=== PATIENT | male | born 2000 | race Hispanic/Latino ===

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

== ENCOUNTER 2022-07-11 11:19 | Emergency (ER) | payer MEDICAID, OTHER ==
[~2022-07-11] VITALS: Ht 172.7 cm; Wt 64.1 kg
[2022-07-11 12:23] VITALS: BP 121/94
[2022-07-11] MEDS ORDERED: PRED20TA3 PO (12:36)
[2022-07-11] MEDS ORDERED: CYCL10TA16 PO (12:36)
[2022-07-11] MEDS ORDERED: NAPR500T6 PO (12:36)
[2022-07-11] MEDS ORDERED: PREDNISONE 20 MG TABLET PO ONE (13:00)
[2022-07-11] MEDS ORDERED: KETOROLAC 30MG VIAL (30MG/ML) IM ONE (13:00)
[2022-07-11] MEDS ORDERED: CYCLOBENZAPRINE HCL 10 MG TABLET PO ONE (13:00)
== END 2022-07-11 12:49 | disposition home or self-care (01) ==
LOC: EDH 11:19
DX: M54.41 Lumbago with sciatica, right side (principal); Z88.1 Allergy status to other antibiotic agents
CPT/HCPCS: 99283; 96372; J1885